=== PATIENT | female | born 1975 | race Two or more races ===

== ENCOUNTER 2024-09-06 11:02 | Emergency (ER) | payer OTHER ==
[~2024-09-06] VITALS: Ht 162.6 cm; Wt 99.3 kg
[2024-09-06 12:47] VITALS: O2SAT 97
[2024-09-06] MEDS ORDERED: NIFEDIPINE 10 MG CAPSULE PO ONE (13:30)
[2024-09-06 15:35] LABS: BASO % 0.6 % (0.1-1.2); EOS # 0.17 (0.04-0.54); EOS % 2.0 % (0.7-7.0); LYMPH # 2.28 (1.18-3.74); LYMPH % 26.9 % (19.3-53.1); MEAN PLATELET VOLUME 10.40 fl (9.4-12.4); MONO # 0.51 (0.24-0.82); MONO % 6.0 % (4.7-12.5); NEUT # 5.45 (1.56-6.13); NEUT % 64.3 % (34.0-71.1); RED CELL DISTRIBUTION WIDTH 12.6 % (11.6-14.4)
[2024-09-06 16:07] LABS: ALT/SGPT 23.0 U/L (12-78); AST/SGOT 12.0 U/L (15-37); BILIRUBIN TOTAL 0.49 mg/dL (0.3-1.2); BUN CREA RATIO 12.0 (7.0-25.0); CREATININE SERUM 0.92 mg/dL (0.55-1.02); GFR 65.15; GLOBULINA 3.6 G/DL (2.4-3.5); GLUCOSE FASTING 99.0 mg/dL (65-100); OSMOLALITY SERUM 279.0 MOSM/KG (275-295)
[2024-09-06 16:24] LABS: COVID-19 AG NEGATIVE (NEGATIVE)
[2024-09-06 17:13] VITALS: BP 149/77
[2024-09-06] MEDS ORDERED: HYZAAR 50-12.51 EACH PO (17:20)
== END 2024-09-06 17:44 | disposition home or self-care (01) ==
LOC: ER 11:02
PROVIDERS: General Practice
DX: R42 Dizziness and giddiness (principal); R07.89 Other chest pain; I10 Essential (primary) hypertension; Z20.822 Contact with and (suspected) exposure to COVID-19